=== PATIENT | male | born 1980 | race Caucasian/White ===

== ENCOUNTER 2017-02-22 21:50 | Emergency (ER) | payer BC, OTHER ==
[~2017-02-22] VITALS: Ht 167.6 cm; Wt 78.0 kg
[~2017-02-22 21:50] MED LIST: IBUP-1542 PO; TRAM50TA2 PO
[2017-02-22 21:52] VITALS: Ht 167.6 cm; Wt 78.0 kg
[2017-02-22] MEDS ORDERED: KETOROLAC 60 MG INJ IM STA (22:35)
--- NOTE | 2017-02-22 22:38 | ERD ---
ER Documentation Chief Complaint Date/Time DATE: 02/22/17 TIME: 22:37 Chief Complaint SORE THROAT X 3 DAYS HPI This is a 36-year-old gentleman with sore throat for 3 days. Mild fevers. No nausea no vomiting. Is positive sick contacts that had strep throat. ROS All systems reviewed and are negative except as per history of present illness. Medications Home Meds Active Scripts Tramadol HCl (Tramadol HCl) 50 Mg Tablet, 50 MG PO Q6 Y for PAIN, #15 TAB Prov:GIOVANI HANDY PA-C 11/24/15 Ibuprofen* (Motrin*) 600 Mg Tab, 600 MG PO Q6H Y for PAIN AND OR ELEVATED TEMP, #30 TAB Prov:GIOVANI HANDY PA-C 11/24/15 Allergies Allergies: Coded Allergies: No Known Allergy (Unverified , 11/24/15) PMhx/Soc History of Surgery: Yes (LEFT ROTATOR CUFF SX) Anesthesia Reaction: No Hx Neurological Disorder: No Hx Respiratory Disorders: No Hx Cardiac Disorders: No Hx Psychiatric Problems: No Hx Miscellaneous Medical Probl: No Hx Alcohol Use: No Hx Substance Use: No Hx Tobacco Use: No Physical Exam Vitals Vital Signs Date Time Temp Pulse Resp B/P Pulse Ox O2 Delivery O2 Flow Rate FiO2 02/22/17 21:52 98.6 83 18 115/64 98 Physical Exam Const: [] Head: Atraumatic Eyes: Normal Conjunctiva ENT: Right peritonsillar exudate with no uvular deviation Neck: Full range of motion..~ No meningismus. Resp: Clear to auscultation bilaterally Cardio: Regular rate and rhythm, no murmurs Abd: Soft, non tender, non distended. Normal bowel sounds Skin: No petechiae or rashes Back: No midline or flank tenderness Ext: No cyanosis, or edema Neur: Awake and alert Psych: Normal Mood and Affect Results 24 hrs Current Medications Medications (Trade) Dose Ordered Sig/Alka Route PRN Reason Start Time Stop Time Status Last Admin Dose Admin Ketorolac Tromethamine (Toradol) 60 mg ONCE STAT IM 02/22/17 22:35 02/22/17 22:36 Procedures/MDM Medical decision-making: Is a 36-year-old gentleman with a stated pharyngitis with a family history of recent strep. At this point clinically stable. Discharge home with Augmentin and Motrin. Follow-up with PCP. Return for worsening symptoms. Departure Diagnosis: Primary Impression: Sore throat Additional Impression: Exudative pharyngitis Condition: Stable FRANSISCO DESAI Feb 22, 2017 22:38
[2017-02-22] MEDS ORDERED: IBUP-1542 PO (22:39)
[2017-02-22] MEDS ORDERED: AMOX1TAB10 PO (22:39)
[2017-02-22 23:09] VITALS: BP 118/71; PULSE 71; RESP 18; TEMP 98.2
== END 2017-02-22 23:00 | disposition home or self-care (01) ==
LOC: E/R 21:50
DX: J02.9 Acute pharyngitis, unspecified (principal)
CPT/HCPCS: 96372; J1885; Z7502